=== PATIENT | female | born 1970 | race Caucasian/White ===

== ENCOUNTER 2024-01-09 05:15 | Inpatient (IN) ==
[2024-01-09] MEDS ORDERED: Polyethylene Glycol 3350 17 GM PACKET PO PRN (06:04)
[2024-01-09] MEDS: cefTRIAXone 1 gm/50 mL D5W 1 GM/50 ML BAG IV SCH (06:50)
[2024-01-09 07:30] LABS: High Sensitivity Troponin 3 Hr 156 pg/mL (<15)
[2024-01-09 08:13] LABS: Creatinine, Serum 0.81 mg/dL (0.51-0.95); eGFR CKD-EPI 87.8 (>60)
[2024-01-09] MEDS: Azithromycin 500 mg/250 ml NS 500 MG/250 ML BAG IVPB SCH (08:16)
[2024-01-09] MEDS: Furosemide 40 mg/4 ml IV VIAL IV ONE (08:16)
[2024-01-09 08:40] LABS: Platelet Count 288 10^3/uL (150-450); White Blood Count 11.8 10^3/uL (3.8-11.8)
[2024-01-09 08:50] LABS: ABS Lymphocytes 1.7 10^3/uL (1.0-4.8); ABS Monocytes 0.7 10^3/uL (0.0-0.9); Eosinophil % 0.4 %; Hematocrit 39.8 % (35-45); Hemoglobin 13.5 g/dL (11.5-14.3); Lymphocyte % 14.8 %; Mean Corpuscular Hemoglobin 30.5 pg (27-33); Mean Corpuscular Hgb Conc 33.9 g/dL (31-36); Mean Corpuscular Volume 89.9 fL (80-97); Mean Platelet Volume 8.1 fL (7.5-11.2); Red Blood Count 4.43 10^6/uL (3.63-4.92); Red Cell Distribution Width 13.6 % (12-17)
[2024-01-09] MEDS: Heparin 5000 UNITS/ML 1 mL VIAL IV SCH (09:09)
[2024-01-09] MEDS: Heparin DRIP 25,000 UNITS BAG 25,000 UNITS/250 ML BAG IV SCH (09:10)
[2024-01-09] MEDS ORDERED: Sulfur Hexaflouride MICROSPHR 25 MG VIAL ONE (09:38)
[2024-01-09] MEDS: Sulfur Hexaflouride MICROSPHR 25 MG VIAL IV ONE (09:46)
[2024-01-09] MEDS: NS 0.9% 1000 ml BAG 1,000 ML IV SCH (09:55)
[2024-01-09 10:14] LABS: ABS Basophils 0.1 10^3/uL (0.0-0.1); ABS Eosinophils 0.1 10^3/uL (0.0-0.5); ABS Lymphocytes 2.1 10^3/uL (1.0-4.8); ABS Monocytes 0.5 10^3/uL (0.0-0.9); ABS Neutrophils 8.1 10^3/uL (1.5-7.6); ABS Nucleated RBC 0.01 10^3/ul; Eosinophil % 0.9 %; Hematocrit 37.6 % (35-45); Hemoglobin 12.8 g/dL (11.5-14.3); Mean Corpuscular Hemoglobin 30.6 pg (27-33); Mean Corpuscular Hgb Conc 34.1 g/dL (31-36); Mean Corpuscular Volume 89.6 fL (80-97); Nucleated Red Blood Cells % 0.1 %/100WBC (0.0-0.8); Platelet Count 284 10^3/uL (150-450); Red Blood Count 4.19 10^6/uL (3.63-4.92); Red Cell Distribution Width 13.7 % (12-17); White Blood Count 10.8 10^3/uL (3.8-11.8)
[2024-01-09 10:33] LABS: Calcium 8.8 mg/dL (8.6-10.3); Creatinine, Serum 0.83 mg/dL (0.51-0.95); Potassium 3.5 mmol/L (3.5-5.0); eGFR CKD-EPI 85.3 (>60)
[2024-01-09] MEDS ORDERED: Heparin 1,000 UNIT/ML 10 ml (10,000 UNITS) CATHLAB/DIALYSIS ONE ×2 (10:58→11:47)
[2024-01-09] MEDS ORDERED: nitroGLYCERIN DRIP 25,000 MCG/250 ML BTL ONE (10:58)
[2024-01-09] MEDS ORDERED: fentaNYL 100 mcg/2 ml 50 MCG/ML VIAL ONE ×2 (10:58→12:17)
[2024-01-09] MEDS ORDERED: Flumazenil 0.5 mg/5 ml 0.1 MG/ML 5 ml VIAL IV PRN (10:58)
[2024-01-09] MEDS ORDERED: Heparin 2 UNITS/ML 1000 mls 3,000 ML IV ONE (10:58)
[2024-01-09] MEDS ORDERED: Naloxone 0.4 mg VIAL 0.4 mg/ml 1 ml VIAL IV PUSH PRN (10:58)
[2024-01-09] MEDS ORDERED: Midazolam 5 mg/5 ml VIAL 1 mg/ml 5 ml VIAL (5 mg) ONE (10:58)
[2024-01-09] MEDS ORDERED: niCARdipine 0.1MG/ML IVPREMIX 20 MG/200 ML BAG IV ONE (10:59)
[2024-01-09] MEDS ORDERED: Iohexol 350 (CONTRAST) 100 ML PAK IV ONE (10:59)
[2024-01-09] MEDS ORDERED: Iohexol 350 (CONTRAST) 200 ML MDV IV ONE (10:59)
[2024-01-09] MEDS ORDERED: Lidocaine 1% MPF 5 ML VIAL ONE (11:28)
[2024-01-09] MEDS ORDERED: Atropine 0.1 MG/ML 10 ml SYR (1 mg) ONE (11:50)
[2024-01-09 12:01] LABS: POC SO2 59 %
[2024-01-09 12:01] LABS: POC SO2 91 %
[2024-01-09 12:48] LABS: INR 1.26 (0.83-1.13)
[2024-01-09] MEDS ORDERED: Heparin 5000 UNITS/ML 1 mL VIAL SUBCUT SCH (14:00)
[2024-01-09] MEDS: fentaNYL 100 mcg/2 ml 50 MCG/ML VIAL IV SLOW PU ONE (16:52)
[2024-01-09] MEDS: Midazolam 10 mg/10 ml VIAL 1 mg/ml 10 ml VIAL (10 mg) IV SLOW PU ONE (16:53)
[2024-01-09 21:46] LABS: HDL Cholesterol 55.3 mg/dL
[2024-01-10 06:45] LABS: ABS Basophils 0.1 10^3/uL (0.0-0.1); ABS Eosinophils 0.2 10^3/uL (0.0-0.5); ABS Lymphocytes 2.3 10^3/uL (1.0-4.8); ABS Monocytes 0.4 10^3/uL (0.0-0.9); ABS Neutrophils 4.5 10^3/uL (1.5-7.6); Eosinophil % 2.2 %; Hematocrit 32.5 % (35-45); Hemoglobin 11.1 g/dL (11.5-14.3); Lymphocyte % 31.3 %; Mean Corpuscular Hemoglobin 30.4 pg (27-33); Mean Corpuscular Hgb Conc 34.1 g/dL (31-36); Mean Corpuscular Volume 89.3 fL (80-97); Platelet Count 231 10^3/uL (150-450); Red Blood Count 3.64 10^6/uL (3.63-4.92); Red Cell Distribution Width 13.2 % (12-17); White Blood Count 7.5 10^3/uL (3.8-11.8)
[2024-01-10] MEDS ORDERED: Flumazenil 0.5 mg/5 ml 0.1 MG/ML 5 ml VIAL ONE (11:02)
[2024-01-10] MEDS ORDERED: fentaNYL 100 mcg/2 ml 50 MCG/ML VIAL ONE (11:02)
[2024-01-10] MEDS ORDERED: Naloxone 0.4 mg VIAL 0.4 mg/ml 1 ml VIAL ONE (11:02)
[2024-01-10] MEDS ORDERED: Midazolam 5 mg/5 ml VIAL 1 mg/ml 5 ml VIAL (5 mg) ONE (11:03)
[2024-01-10] MEDS ORDERED: Ondansetron 4 mg VIAL 2 MG/ML 2 ml VIAL ONE (12:17)
[2024-01-11 10:48] VITALS: BP 135/88
[2024-01-11 11:47] LABS: ABS Basophils 0.1 10^3/uL (0.0-0.1); ABS Eosinophils 0.2 10^3/uL (0.0-0.5); ABS Lymphocytes 1.8 10^3/uL (1.0-4.8); ABS Monocytes 0.4 10^3/uL (0.0-0.9); ABS Neutrophils 4.5 10^3/uL (1.5-7.6); Eosinophil % 2.5 %; Hematocrit 33.6 % (35-45); Hemoglobin 11.4 g/dL (11.5-14.3); Mean Corpuscular Hemoglobin 30.7 pg (27-33); Mean Corpuscular Hgb Conc 34.1 g/dL (31-36); Mean Corpuscular Volume 89.9 fL (80-97); Mean Platelet Volume 7.5 fL (7.5-11.2); Platelet Count 263 10^3/uL (150-450); Red Blood Count 3.73 10^6/uL (3.63-4.92); Red Cell Distribution Width 13.5 % (12-17)
[2024-01-11 12:27] LABS: Calcium 9.3 mg/dL (8.6-10.3); Creatinine, Serum 0.8 mg/dL (0.51-0.95); Potassium 4.1 mmol/L (3.5-5.0); eGFR CKD-EPI 89.2 (>60)
== END 2024-01-11 14:30 | disposition home or self-care (01) | DRG 190 ==
LOC: EDHOLD 05:15 → ED 05:15 → SUATTDRO 06:04 → OBSVTOIN 06:04 → EDHOLD 09:35 → AA 09:51 → MEDTELE 17:06
PROVIDERS: ADMIT Internal Medicine; ATTEND Student in an Organized Health Care Education/Training Program